=== PATIENT | female | born 1960 | race African-American/Black ===

== ENCOUNTER → 2017-01-31 | Day surgery (SDC) | payer OTHER ==
[~2017-01-31] MED LIST: ASPIRIN81 M2 PO; CATAPRES0.1 M1; HYDROCHLOROTH12.5 MG PO; HYDROCHLOROTHIA25 MG
--- NOTE | ~2017-01-31 | OR ---
Unit #: [id number] #: [id number] Patient: THOR OMALLEY [id number] [address] [place], [place] [address] [id number] O MR#: [id number] NAME: THOR OMALLEY. ROOM: Date of Procedure: 01/31/2017 Admission Date: 01/31/2017 Surgeon: Mohan Britt M.D. : 1960 Attending Physician: Mohan Britt M.D. Primary Care Physician: [facility] OPERATIVE REPORT PROCEDURE PERFORMED Colonoscopy with snare polypectomy. INDICATIONS FOR PROCEDURE A 56-year-old with average risk for colorectal cancer. MEDICATIONS Monitored anesthesia. POSTOPERATIVE FINDINGS 1. 6 mm polyp, rectum, snared and sent for histopathology. 2. Rest of the colon to cecum was normal. 3. Good prep. PLAN Repeat colonoscopy in 5 years if adenomatous. DESCRIPTION OF PROCEDURE The patient was explained of the procedure, risks, and benefits along with the risks and benefits of anesthesia. She was brought to the endoscopy room. Propofol anesthesia was given. Rectal exam was done, which was normal. Colonoscope was lubricated, passed up the rectum, advanced under direct vision all the way to the cecum. Cecum was identified by ileocecal valve and appendiceal orifice. Polyp seen in rectum was snared and sent for histopathology. Rest of the mucosa was normal and healthy. I retroflexed in the rectum, small hemorrhoids were noted. The scope was gently pulled out. She tolerated it well. Dictated by... Bianca Roldan/michael TD: 02/19/2017 14:57 JOB #: [id number] Unit #: [id number] #: [id number] Patient: THOR OMALLEY OPERATIVE REPORT Page 1 of 1 X Mohan Britt MD X PROCEDURE OPERATIVE NOTE
== END | disposition home or self-care (01) ==
LOC: COPS 11:53
DX: Z12.11 Encounter for screening for malignant neoplasm of colon (principal); K62.1 Rectal polyp; I10 Essential (primary) hypertension; K21.9 Gastro-esophageal reflux disease without esophagitis; Z88.8 Allergy status to other drugs, medicaments and biological substances; Z86.73 Personal history of transient ischemic attack (TIA), and cerebral infarction without residual deficits
CPT/HCPCS: 88305